=== PATIENT | male | born 1990 | race Caucasian/White ===

== ENCOUNTER 2017-02-02 17:47 | Emergency (ER) | payer OTHER ==
[~2017-02-02] VITALS: Ht 167.6 cm; Wt 59.0 kg
--- NOTE | ~2017-02-02 | EKG ---
[place] [id number] [facility] [email or web address] [address] ELECTROCARDIOGRAM REPORT Name: SOCORRO HERCULES Room [facility]: [facility] [id number] Admission: 02/02/17 Attend Phys: Discharge: 02/02/17 Date of : 88 Report #: [id number] THIS REPORT FOR: //name// [facility] ED Test Date: 2017-02-02 Test Time: 18:18:05 Pat Name: SOCORRO HERCULES Department: Room: Gender: Supervisor [employer]: Gracie RASCON : 1990 Requested By: Janak Matamoros Order Number: [id number] MD: Peter Escalante Measurements Intervals [place] Rate: 117 P: 78 NM: 139 QRS: 105 QRSD: 107 T: 67 QT: 347 QTc: 484 Interpretive Statements Sinus tachycardia Consider right ventricular hypertrophy Baseline wander in lead(s) V1 No previous ECG available for comparison Electronically Signed On 02-03-2017 8:07:20 CDT by Peter Escalante [email or web address] <ELECTRONICALLY SIGNED> By: Peter Escalante MD 02/03/17 [id number] [id number] MD EDVIN Terry
[2017-02-02 18:14] LABS: ABSOLUTE NEUTROPHILS 4.8 thou/uL (1.4-8.2); BASOPHILS 0.7 % (0.0-2.0); EOSINOPHILS 2.5 % (0.0-3.0); HEMOGLOBIN 15.2 gm/dL (14.0-18.0); LYMPHOCYTES 40.2 % (24.0-44.0); MCH 29.1 pg (26.0-34.0); MCHC 33.7 g/dL (28.0-37.0); MCV 86.4 fL (80.0-100.0); MONOCYTES 6.2 % (1.0-8.0); PLATELET COUNT 280 thou/uL (150-400); POLYS 50.4 % (36.0-66.0); RBC 5.21 mil/uL (4.50-6.00); RDW 13.4 % (10.5-14.5); WBC 9.5 thou/uL (4.0-11.0)
[2017-02-02 18:20] LABS: MANUAL DIFF NO
[2017-02-02 18:36] LABS: ALBUMIN 4.1 g/dL (3.4-5.0); ALKALINE PHOSPHATASE 91 U/L (46-116); BUN 11 mg/dL (7-18); CALCIUM 9.5 mg/dL (8.5-10.1); CO2 18 mmol/L (21-32); CREATININE 1.3 mg/dL (0.7-1.3); DIRECT BILIRUBIN 0.1 mg/dL (<0.1-0.3); GLUCOSE 117 mg/dL (74-106); SGOT 31 U/L (15-37); SGPT 29 U/L (30-65); TOTAL BILIRUBIN 0.3 mg/dL (<0.1-1.0); TOTAL PROTEIN 7.6 g/dL (6.4-8.2); TROPONIN-I < 0.04 ng/mL (<0.04-0.07)
[2017-02-02 18:41] LABS: ANION GAP 18 mmol/L (7-16); CHLORIDE 104 mmol/L (98-107); POTASSIUM 3.2 mmol/L (3.5-5.1); SODIUM 140 mmol/L (136-145)
[2017-02-02 19:54] LABS: URINE BILIRUBIN NEGATIVE (Negative); URINE BLOOD NEGATIVE (Negative); URINE COLOR YELLOW; URINE GLUCOSE-RANDOM* NEGATIVE (Negative); URINE KETONES NEGATIVE (Negative); URINE LEUKOCYTES-REFLEX NEGATIVE (Negative); URINE PROTEIN (DIPSTICK) NEGATIVE (Negative); URINE SPECIFIC GRAVITY <= 1.005 (1.003-1.035); URINE UROBILINOGEN 0.2 E.U./dl (0.2-1.0)
[2017-02-02 20:02] LABS: AMP/METHAMP POSITIVE (Negative); BARBITURATES Negative (Negative); BENZODIAZEPINES Negative (Negative); COCAINE Negative (Negative); METHADONE Negative (Negative); OPIATES Negative (Negative); PCP Negative (Negative); THC POSITIVE (Negative)
[2017-02-02 21:54] VITALS: BP 123/89
== END 2017-02-02 22:06 | disposition home or self-care (01) ==
LOC: ER 17:47
PROVIDERS: Emergency Medicine
DX: F12.10 Cannabis abuse, uncomplicated (principal); F15.10 Other stimulant abuse, uncomplicated; R41.843 Psychomotor deficit